=== PATIENT | male | born 1985 ===

== ENCOUNTER 2023-02-26 18:40 | Emergency (ER) | payer SELFPAY ==
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
[2023-02-26 18:45] VITALS: BP 125/90; PULSE 87; RESP 20; TEMP 36.8; O2SAT 99; BMI 24.4
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
[2023-02-26] MEDS: Diphth,Pertus(ACell),Tet Adult 0.5 ML SYRINGE IM (20:29)
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
[2023-02-26 22:09] VITALS: BP 114/74; PULSE 66; RESP 14; TEMP 36.9; O2SAT 99
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
--- NOTE | 2023-02-27 | PC.NURSE ---
Discharge instructions given and explained to patient aox4 no apparent distress ambulates safely and independently
== END 2023-02-26 23:25 | disposition home or self-care (01) ==
PROVIDERS: Emergency Provider Emergency Medicine
DX: S01.111A Laceration without foreign body of right eyelid and periocular area, initial encounter (principal); Y04.2XXA Assault by strike against or bumped into by another person, initial encounter; Y93.9 Activity, unspecified; Y92.9 Unspecified place or not applicable; R07.81 Pleurodynia; M54.2 Cervicalgia; R51.9 Headache, unspecified; Z23 Encounter for immunization
CPT/HCPCS: 70450; 70486; 71101; 72125; 90471; 90715; 99284